=== PATIENT | female | born 1975 | race Caucasian/White ===

== ENCOUNTER 2023-03-26 01:59 | Outpatient (CLI) | payer OTHER, SELFPAY ==
--- NOTE | 2023-03-26 08:30 | DI.US_ITS ---
Exam(s) MAMMO DIAGNOSTIC BI US BREAST LT LIMITED EXAM: MAMMO DIAGNOSTIC BI and U/S breast LT limited CLINICAL HISTORY: evaluate pathology, LT BREAST MASS, N63.20. TECHNIQUE: Craniocaudal and mediolateral oblique Full Field Digital Mammography views with Computer Aided Diagnosis followed by Tomosynthesis and left breast ultrasound. COMPARISON: There are no priors available at this time for comparison. Should they be submitted, an addendum will be issued at that time. FINDINGS: Mammography/Tomosynthesis: Masses/Architectural Distortion: None seen. Microcalcifictions: No suspicious pleomorphic-type are seen. Skin Thickening/Nipple Retraction: None. Limited left breast US: Echotexture: Normal appearance of the glandular tissue. Shadowing: No suspicious foci. Cyst: None. Solid lesions: There is a 3 mm round hyperdense lesion at the 2 o'clock position of the left breast 1 cm from the nipple. This likely reflects a benign lesion such as lipoma. Ductal dilation: None. IMPRESSION: 1. No evidence of malignancy is noted. 2. Unless there is more urgent need, follow-up screening mammography is recommended, as per [employer] [employer] guidelines. 3. The findings were discussed with the patient on the date of the examination. BI-RADS Category 1 - Negative Breast Density - Category B - Scattered areas of fibroglandular density Breast density Category C or D implies that the patient has dense breast tissue. Dense breast tissue can make it harder to find cancer on a mammogram. Dense breast tissue is also associated with an incr eased risk of breast cancer. This information about the result of the mammogram report was provided to the patient to raise their awareness. Use this report when you speak with the patient about their risks for breast cancer, which includes their family history. At that time, you may recommend additional screening tests (Ultrasoun d or MRI) as these tests may add significant information. A negative radiographic report should not delay biopsy if a dominant or clinically suspicious mass is present. Up to ten percent of cancers are not identified on mammography. A negative report may reinforce clinical impression. Adenosis and dense breasts may obscure an underlying neoplasm. False positive reports average 6 to 10%. Patient will receive a letter notifying them of these results.
== END 2023-03-26 02:19 ==
LOC: DI 01:59
PROVIDERS: PCP Nurse Practitioner Family; Visit Provider Nurse Practitioner Family
DX: N63.21 Unspecified lump in the left breast, upper outer quadrant (principal); Z12.31 Encounter for screening mammogram for malignant neoplasm of breast
CPT/HCPCS: 76642; 77062; 77066; G0279

== ENCOUNTER 2023-05-02 18:52 | Outpatient (REF) | payer OTHER, SELFPAY | END 2023-05-02 18:53 | disposition home or self-care (01) | LOC: LBN 18:52 | PROVIDERS: PCP Nurse Practitioner Family; Visit Provider Family Medicine | DX: R07.0 Pain in throat (principal); Z11.9 Encounter for screening for infectious and parasitic diseases, unspecified | CPT/HCPCS: 87081 ==

== ENCOUNTER 2023-06-30 02:03 | Outpatient (CLI) | payer OTHER, SELFPAY ==
[2023-06-30 12:25] LABS: HCT 40.5 % (36.0-46.0); HGB 13.8 g/dL (11.2-15.7); MCH 31.2 pg (27.0-33.0); MCHC 34.1 % (32.0-36.0); MCV 92 fL (80-95); Platelet Count 358 10^3/uL (130-400); RBC 4.42 10^6/uL (3.93-5.22); RDW 12.9 % (11.7-14.6); RDW-SD 43.1 fL; WBC 7.87 10^3/uL (4.4-10.8)
[2023-06-30 12:45] LABS: ALT 38 U/L (14-59); AST 23 U/L (15-37); Albumin 3.6 g/dL (3.4-5.0); Alkaline Phosphatase 77 U/L (46-116); Anion Gap 9.9 mmol/L (3-11); BUN 11 mg/dL (7-18); Bilirubin, Total 0.5 mg/dL (0.2-1.0); CO2 26.1 mmol/L (21.0-32.0); CREATININE 0.9 mg/dL (0.55-1.02); Calcium 9.2 mg/dL (8.5-10.1); Calculated LDL 132 mg/dL (<100); Chloride 103 mmol/L (98-107); Cholesterol 217 mg/dL (<200); Estimated GFR 79.85 (mL/min/1.73m2); Glucose 97 mg/dL (74-106); HDL Cholesterol 41 mg/dL (40-60); Sodium 139 mmol/L (136-145); TSH (W/Ref FT4) 0.87 uIU/mL (0.36-3.74); Total Protein 7.4 g/dL (6.4-8.2); Triglyceride 222 mg/dL (<150)
[2023-07-01 09:29] LABS: HIV-1/2 Ag & Ab Screen Negative (Negative)
[2023-07-01 09:55] LABS: Hepatitis C Ab w Rflx HCV PCR Negative (Negative)
== END 2023-06-30 02:04 | disposition home or self-care (01) ==
LOC: LOS 02:03
PROVIDERS: PCP Nurse Practitioner Family; Visit Provider Nurse Practitioner Family
DX: R53.83 Other fatigue (principal); E66.9 Obesity, unspecified; Z13.220 Encounter for screening for lipoid disorders; Z11.4 Encounter for screening for human immunodeficiency virus [HIV]; Z11.59 Encounter for screening for other viral diseases
CPT/HCPCS: 36415; 80053; 80061; 85027; 86803; 87389; 84443

== ENCOUNTER 2023-09-11 14:31 | Outpatient (CLI) | payer OTHER, SELFPAY ==
--- NOTE | 2023-09-11 10:00 | DI.RAD_ITS ---
Exam(s) XR HIP RT COMPLETE AP PELVIS EXAM: XR HIP RT COMPLETE AP PELVIS CLINICAL HISTORY: RIGHT HIP PAIN. TECHNIQUE: 2D digital imaging was performed. Two views COMPARISON: No exams were available for comparison FINDINGS: BONES: No acute fracture is present. No bony destructive lesion is seen. JOINTS: No dislocation present. The hip joint spaces are maintained. No significant acetabular spu rring. SI joints and pubic symphysis are unremarkable. SOFT TISSUE: Normal. IMPRESSION: No acute abnormality. DATA REPOSITORY: RADIATION DOSE DELIVERED:
== END 2023-09-11 14:32 | disposition home or self-care (01) ==
LOC: DIORS 14:32
PROVIDERS: PCP Nurse Practitioner Family; Visit Provider Physician Assistant
DX: M25.551 Pain in right hip (principal)
CPT/HCPCS: 73502